=== PATIENT | female | born 1985 | race Caucasian/White ===

== ENCOUNTER 2021-03-18 05:42 | Inpatient (IN) ==
[2021-03-18] MEDS ORDERED: LIDOCAINE 2% 5 ML VIAL ONE (06:12)
[2021-03-18] MEDS ORDERED: ROCURONIUM 50 MG/5 ML VIAL IV ONE (06:12)
[2021-03-18] MEDS ORDERED: DEXAMETHASONE 4 MG/1 ML VIAL ONE ×2 (06:12→06:34)
[2021-03-18] MEDS ORDERED: propofoL 200 MG/20 ML VIAL IV ONE (06:12)
[2021-03-18] MEDS ORDERED: ONDANSETRON 4 MG/2 ML VIAL ONE ×2 (06:12→08:54)
[2021-03-18] MEDS ORDERED: fentaNYL 100 MCG/2 ML VIAL ONE (06:13)
[2021-03-18] MEDS ORDERED: MIDAZOLAM 2 MG/2 ML VIAL ONE (06:13)
[2021-03-18] MEDS ORDERED: BUPIVACAINE MPF 0.25% 30 ML VIAL ONE (06:14)
[2021-03-18] MEDS ORDERED: LIDOCAINE 1%/EPI INJ 20 ML VIAL ONE (06:14)
[2021-03-18] MEDS ORDERED: TISSUE ADHESIVE 1 EACH APPLICATOR TOP ONE (06:14)
[2021-03-18] MEDS ORDERED: BUPIVACAINE LIPOSOMAL 20 ML/266 MG VIAL ONE (06:14)
[2021-03-18] MEDS ORDERED: SCOPOLAMINE 1.5 MG PATCH TRANSDERM ONE ×2 (06:17→07:23)
[2021-03-18] MEDS ORDERED: PANTOPRAZOLE 40 MG VIAL IV ONE ×2 (06:17→07:25)
[2021-03-18] MEDS ORDERED: ACETAMINOPHEN INJ 1,000 MG/100 ML VIAL IV ONE (06:18)
[2021-03-18] MEDS ORDERED: FAMOTIDINE 20 MG TABLET PO ONE (06:21)
[2021-03-18] MEDS ORDERED: LACTATED RINGERS 1,000 ML IV SCH (06:30)
[2021-03-18] MEDS ORDERED: ROPIVACAINE 0.5% 30 ML VIAL ONE (06:34)
[2021-03-18] MEDS ORDERED: SUFentanil 50 MCG/ML AMP ONE (06:34)
[2021-03-18] MEDS ORDERED: HEPARIN 5,000 UNIT/1 ML VIAL SUBCUT ONE (07:30)
[2021-03-18] MEDS ORDERED: HYOSCYAMINE 0.125 MG TABLET PO ONE (07:30)
[2021-03-18] MEDS ORDERED: KETOROLAC 30 MG/1 ML VIAL ONE (08:38)
[2021-03-18] MEDS ORDERED: SEVOFLURANE 1 UNIT/15 MINUTE INH ONE (08:38)
[2021-03-18] MEDS ORDERED: INDOCYANINE GREEN 25 MG VIAL IV ONE (08:42)
[2021-03-18] MEDS ORDERED: GLYCOPYRROLATE 0.4 MG/2 ML VIAL ONE (08:49)
[2021-03-18] MEDS ORDERED: NEOSTIGMINE 10 MG/10 ML VIAL ONE (08:50)
[2021-03-18] MEDS ORDERED: hydrALAZINE 20 MG/1 ML VIAL IV PRN (11:28)
[2021-03-18] MEDS ORDERED: ONDANSETRON 4 MG/2 ML VIAL IV PRN (11:28)
[2021-03-18] MEDS ORDERED: ALPRAZolam 0.5 MG TABLET PO PRN (11:31)
[2021-03-18] MEDS: LACTATED RINGERS 1,000 ML IV SCH ×2 (12:44→20:23)
[2021-03-18] MEDS ORDERED: HYDROmorphone 2 MG/1 ML VIAL IV PRN ×2 (13:44)
[2021-03-18] MEDS: KETOROLAC 15 MG/1 ML VIAL IV SCH ×2 (13:53→21:10)
[2021-03-18] MEDS: oxyCODONE/ACETAMINOPHEN 5-325 MG TABLET PO PRN ×2 (13:55→23:24)
[2021-03-18] MEDS: SIMETHICONE CHEW 80 MG TABLET PO SCH ×2 (16:32→21:10)
[2021-03-18 17:40] LABS: Calcium 8.4 MG/DL (8.5-10.1); Osmolality,Calculated 275.7 MOS/KG (273-304); Potassium 3.9 MMOL/L (3.5-5.1)
[2021-03-18] MEDS: ceFAZolin 2,000 MG/50 ML DUPLEX IV SCH (17:51)
[2021-03-19] MEDS: ceFAZolin 2,000 MG/50 ML DUPLEX IV SCH (02:39)
[2021-03-19] MEDS: KETOROLAC 15 MG/1 ML VIAL IV SCH ×2 (02:42→08:02)
[2021-03-19] MEDS: LACTATED RINGERS 1,000 ML IV SCH (04:23)
[2021-03-19 06:26] LABS: Basophils % 0.1 % (0.0-0.8); Eosinophils % 0.1 % (0.00-10.9); Hematocrit 36.4 VOL% (35.7-47.0); Hemoglobin 11.9 GM/DL (12.0-16.0); Immature Granulocytes % 0.7 %; Immature Granulocytes Absolute 0.08 #; Lymphocytes # 1.3 10*3/uL (1.4-4.0); Lymphocytes % 11.8 % (21.3-54.2); Mean Corpuscular HGB Conc 32.7 GM/DL (32-36); Mean Corpuscular Volume 92.2 FL (87-102); Monocytes % 6.8 % (1.7-12.7); Neutrophils % 80.5 % (38.7-73.9); Platelet Count 272 T/CUMM (130-400); Red Blood Count 3.95 MC/CUMM (3.8-5.5); Red Cell Distribution Width 12.5 % (9.3-17.3); White Blood Count 10.8 T/CUMM (4-12)
[2021-03-19 06:43] LABS: Calcium 8.2 MG/DL (8.5-10.1); Osmolality,Calculated 275.4 MOS/KG (273-304); Potassium 3.7 MMOL/L (3.5-5.1)
[2021-03-19] MEDS: oxyCODONE/ACETAMINOPHEN 5-325 MG TABLET PO PRN (06:59)
[2021-03-19] MEDS: SIMETHICONE CHEW 80 MG TABLET PO SCH (08:08)
[2021-03-19] MEDS ORDERED: PANTOPRAZOLE 40 MG VIAL IV SCH (09:00)
[2021-03-19] MEDS ORDERED: ENOXAPARIN 40 MG/0.4 ML SYRINGE SUBCUT SCH (09:00)
[2021-03-19 11:24] VITALS: BP 126/73
[2021-03-19] MEDS ORDERED: SIMETHICONE CHEW 80 MG TABLET PO SCH (15:00)
[2021-03-20] MEDS ORDERED: ENOXAPARIN 40 MG/0.4 ML SYRINGE SUBCUT SCH (09:00)
== END 2021-03-19 14:15 | disposition home or self-care (01) | DRG 621 ==
LOC: N.OR 05:42 → N.SDSINP 05:44 → EDSTATUS 07:30 → N.3E 10:22
PROVIDERS: ADMIT Surgery; ATTEND Surgery